=== PATIENT | male | born 1980 | race African-American/Black ===

== ENCOUNTER 2016-10-30 05:31 | Emergency (ER) | payer SELFPAY ==
[~2016-10-30] VITALS: Ht 185.4 cm; Wt 113.4 kg
--- NOTE | 2016-10-30 05:56 | PHYS DOC ---
Past Medical History Past Medical History: Hypertension Past Surgical History: No Surgical History Alcohol Use: Occasionally Drug Use: None Adult General Chief Complaint Chief Complaint: SKIN RASH/ABSCESS HPI HPI Patient is a 36 year old male who presents with facial pain and swelling. Patient reports 2 days ago he noticed a scratch or possibly an insect bite over the bridge of his nose. His experienced increased spreading swelling, redness, and pain around his right eye and eyelid and over his right cheek. Denies pain with eye movements. Denies fever, vomiting, vision changes. History of hypertension. Review of Systems Review of Systems Constitutional: Denies fever or chills Eyes: Denies change in visual acuity HENT: Denies nasal congestion or sore throat Respiratory: Denies cough or shortness of breath Cardiovascular: Denies chest pain or edema GI: Denies abdominal pain, nausea, vomiting Musculoskeletal: Denies back pain or joint pain Integument: Reports facial skin changes as above Neurologic: Denies headache, focal weakness or sensory changes Current Medications Current Medications Current Medications Medications (Trade) Dose Ordered Sig/Lida Start Time Stop Time Status Last Admin Dose Admin Clindamycin Phosphate 50 ml @ 100 mls/hr 1X ONCE 10/30/16 07:00 10/30/16 07:29 DC 10/30/16 06:50 100 MLS/HR Info (Do NOT chart on this entry -- for MONITORING) 1 each PRN DAILY PRN 10/30/16 06:45 11/01/16 06:44 Iohexol (Omnipaque 300 Mg/ml) 70 ml 1X ONCE 10/30/16 07:00 10/30/16 07:01 DC 10/30/16 06:58 70 ML Sodium Chloride 1,000 ml @ 1,000 mls/hr 1X ONCE 10/30/16 06:30 10/30/16 07:29 DC 10/30/16 06:19 1,000 MLS/HR Allergies Allergies Allergies Coded Allergies Type Severity Reaction Last Updated Verified No Known Drug Allergies 10/30/16 No Physical Exam Physical Exam Constitutional: obese, no acute distress, non-toxic appearance. HENT: Normocephalic, atraumatic, bilateral external ears normal, oropharynx moist, erythema/warmth/swelling to midline forehead extending to right periorbital region/eyelid, infraorbital region/cheek, tender with palpation in area of erythema. Eyes: PERRLA, EOMI, conjunctiva normal, no discharge. eyelid & periorbital erythema & swelling as above. Neck: supple, no stridor. cervical lymphadenopathy present. Cardiovascular: no edema. Lungs & Thorax: no respiratory distress. Abdomen: nondistended. Skin: facial skin changes as above Extremities: No deformity Neurologic: Alert and oriented X 3, CN2-12 grossly intact, no focal deficits noted. Psychologic: Affect normal, judgement normal, mood normal. Current Patient Data Vital Signs Vital Signs Date Time Temp Pulse Resp B/P (MAP) Pulse Ox O2 Delivery O2 Flow Rate FiO2 10/30/16 07:00 107 18 173/97 (122) 97 Room Air 10/30/16 05:47 98.8 98.8 Lab Values Laboratory Tests Test 10/30/16 06:05 10/30/16 06:27 White Blood Count 8.2 x10^3/uL (4.0-11.0) Red Blood Count 6.05 x10^6/uL (4.30-5.70) H Hemoglobin 17.7 g/dL (13.0-17.5) H Hematocrit 51.4 % (39.0-53.0) Mean Corpuscular Volume 85 fL (79-100) Mean Corpuscular Hemoglobin 29 pg (25-35) Mean Corpuscular Hemoglobin Concent 34 g/dL (31-37) Red Cell Distribution Width 15.7 % (11.5-14.5) H Platelet Count 308 x10^3/uL (140-400) Neutrophils (%) (Auto) 70 % (31-73) Lymphocytes (%) (Auto) 19 % (24-48) L Monocytes (%) (Auto) 10 % (0-9) H Eosinophils (%) (Auto) 1 % (0-3) Basophils (%) (Auto) 0 % (0-3) Neutrophils # (Auto) 5.7 x10^3uL (1.8-7.7) Lymphocytes # (Auto) 1.6 x10^3/uL (1.0-4.8) Monocytes # (Auto) 0.8 x10^3/uL (0.0-1.1) Eosinophils # (Auto) 0.1 x10^3/uL (0.0-0.7) Basophils # (Auto) 0.0 x10^3/uL (0.0-0.2) Sodium Level 138 mmol/L (136-145) Potassium Level 3.8 mmol/L (3.5-5.1) Chloride Level 100 mmol/L (98-107) Carbon Dioxide Level 29 mmol/L (21-32) Anion Gap 9 (6-14) Blood Urea Nitrogen 15 mg/dL (8-26) Creatinine 1.1 mg/dL (0.7-1.3) Estimated GFR (Cockcroft-Gault) 91.6 Glucose Level 135 mg/dL (70-99) H Calcium Level 9.6 mg/dL (8.5-10.1) Laboratory Tests 10/30/16 06:05 Laboratory Tests 10/30/16 06:27 EKG EKG [] Radiology/Procedures Radiology/Procedures [] Course & Med Decision Making Course & Med Decision Making Pertinent Labs and Imaging studies reviewed. (See chart for details) Patient presents with facial cellulitis. No pain with eye movements but concern for possible orbital involvement or other deep space abscess due to extensive of cellulitis. Will obtain labs and CT. Patient seen at the end of my shift, will transfer care to Dr. Jacobo at 0600. Anticipate he may be discharged home with oral antibiotics if no abscess identified. Otherwise may require transfer for further evaluation. Patient in stable care at the end of my shift. Magno ACOSTA Patient evaluated by me at 6:36 AM feeling markedly improved tachycardia is improved as well as well as hypertension patient believes that his tachycardia and hypertension related to his nervous system anxiety about being in the ER. He has a marked cellulitis from a small wound between his eyelids on his forehead. There is marked soft tissue swelling with warmth and some mild erythema noted. Patient denied discussed possible admission to the hospital for IV antibiotics and close management given the rapid this at this infection spread. We talked about changing oral antibiotics once he is tolerated the medications. He stated playing that he would prefer to go home and not be admitted to the hospital because he is very uncomfortable being here. Patient willing to stay for IV antibiotics and the repeat of this CAT scan. His pain is improved with therapy and treatments given by Dr. Bartlett. Reviewed laboratory work which showed no acute or white count or left shift. Patient does have mild Sirs criteria based on vital sign abdomen amount is. At this point IV clindamycin be administered patiently rechecked for pain control and improvement of his vital signs before being released to home with PCP follow-up. Patient is still reluctant to be admitted to the hospital again feels markedly better his blood pressures improved his heart rate is improved below 100 he is not febrile he feels more comfortable. CT scan of his face demonstrates cellulitis and some reactive lymphadenopathy which was a picked up on physical examination. Likely associated with the infection of his forehead. Again he was offered admission to the Hospital but prefers to go home as an outpatient to try outpatient management. At this point he'll be changed to oral antibiotics oral clindamycin with pain medications and strict follow-up for wound care in the next 12-24 hours. Asked to return immediately if pain is increased with any IV movement whatsoever he develops fever greater than 102.2 increased facial swelling abruptly changes his ability smell swallow or see. Impression: Facial cellulitis, tachycardia and hypertension long-standing. Position CP follow-up 12-24 hours repeat wound evaluation here any more department no follow-up can be arranged. Dragon Disclaimer Dragon Disclaimer This electronic medical record was generated, in whole or in part, using a voice recognition dictation system. Departure Departure Impression: Primary Impression: Facial cellulitis Additional Impressions: Hypertension Tachycardia Disposition: 01 HOME, SELF-CARE Condition: IMPROVED Referrals: NO PCP (PCP) Patient Instructions: Cellulitis, Hypertension, Nonspecific Tachycardia Additional Instructions: Please return and complete her course of antibiotics to ensure that this infection will be treated appropriate. Please return for any new or increasing symptoms like fever greater than 102.2 changes in vision difficulty with increased pain with any movement of her eyes if you have any problems swallowing problems breathing or any question she might have about your care. In 12-24 hours to primary care doctor for repeat wound care or return here if you cannot arrange follow-up. Scripts Naproxen (NAPROSYN) 500 Mg Tablet 1 TAB PO BID, #14 TAB 1 Refill Prov: DESIRE JACOBO MD 10/30/16 Clindamycin Hcl (CLINDAMYCIN HCL) 300 Mg Capsule 300 MG PO QID for 10 Days, #40 CAP Prov: DESIRE JACOBO MD 10/30/16 Hydrocodone Bit/Acetaminophen (HYDROCODONE-APAP 5-325 ) 1 Each Tablet 1-2 TAB PO PRN Q6HRS Y for PAIN for 5 Days, #10 TAB 0 Refills Prov: DESIRE JACOBO MD 10/30/16 Problem Qualifiers PERCY MORRELL MD Oct 30, 2016 05:56 DESIRE JACOBO MD Oct 30, 2016 06:44
[2016-10-30 06:23] LABS: BASO % 0 % (0-3); EOS % 1 % (0-3); HEMATOCRIT 51.4 % (39.0-53.0); HEMOGLOBIN 17.7 g/dL (13.0-17.5); LYMPH # 1.6 x10^3/uL (1.0-4.8); LYMPH % 19 % (24-48); MEAN CORPUSCULAR HEMOGLOBIN 29 pg (25-35); MEAN CORPUSCULAR HGB CONC 34 g/dL (31-37); MEAN CORPUSCULAR VOLUME 85 fL (79-100); MONO % 10 % (0-9); NEUT % 70 % (31-73); PLATELET COUNT 308 x10^3/uL (140-400); RED BLOOD COUNT 6.05 x10^6/uL (4.30-5.70); RED CELL DISTRIBUTION WIDTH 15.7 % (11.5-14.5); WHITE BLOOD COUNT 8.2 x10^3/uL (4.0-11.0)
[2016-10-30] MEDS ORDERED: IV NORMAL SALINE 1000ML BAG 1,000 ML IV ONE (06:30)
[2016-10-30] MEDS ORDERED: CONTRAST GIVEN MC PRN (06:45)
[2016-10-30] MEDS ORDERED: IOHEXOL 300 MG/ML 75 ML VIAL IV ONE (07:00)
[2016-10-30] MEDS ORDERED: CLINDAMYCIN 600MG PREMIX 50 ML IV ONE (07:00)
[2016-10-30 07:05] LABS: CALCIUM 9.6 mg/dL (8.5-10.1); CREATININE 1.1 mg/dL (0.7-1.3); GFR 91.6; POTASSIUM 3.8 mmol/L (3.5-5.1)
--- NOTE | 2016-10-30 07:46 | RAD ---
Indication periorbital and facial cellulitis. Assess for potential abscess. Axial contrast images through the maxillofacial structures were obtained. 70 cc of Omnipaque 300 was administered intravenously. Images were reformatted in the coronal and sagittal planes. The visualized brain appears normal. No bony abnormality is seen. The frontal ethmoid maxillary and sphenoid sinuses are normally aerated. A dominant soft tissue abnormality is not seen. There are scattered lymph nodes, likely reactive, in the visualized neck. The retro-orbital fat is normal. No abscess is seen IMPRESSION: Moderate adenopathy in the neck likely reactive. No discrete abscess seen PQRS Compliance Statement: One or more of the following individualized dose reduction techniques were utilized for this examination: 1. Automated exposure control 2. Adjustment of the mA and/or kV according to patient size 3. Use of iterative reconstruction technique
[2016-10-30] MEDS ORDERED: HYDR-2758 PO (08:14)
[2016-10-30] MEDS ORDERED: CLIN300C8 PO (08:14)
[2016-10-30] MEDS ORDERED: NAPR500T PO (08:14)
[2016-10-30 08:28] VITALS: BP 146/95
[2016-10-30] MEDS ORDERED: DIPHTH,PERTUSS(ACELL),TET TOX 0.5 ML DISP.SYRIN. VAX IM ONE (08:45)
== END 2016-10-30 08:34 | disposition home or self-care (01) ==
LOC: ER 05:31
DX: L03.211 Cellulitis of face (principal); I10 Essential (primary) hypertension; R00.0 Tachycardia, unspecified; E66.9 Obesity, unspecified; Z68.33 Body mass index [BMI] 33.0-33.9, adult
CPT/HCPCS: 36415; 70487; 80048; 85027; 90471; 90715; 96361; 96365; 99285; J3490; J7030; Q9967